=== PATIENT | female | born 1995 | race Two or more races ===

== ENCOUNTER 2021-03-16 22:50 | Emergency (ER) | payer OTHER ==
[~2021-03-16] VITALS: Ht 157.5 cm; Wt 54.2 kg
[2021-03-16] MEDS ORDERED: ONDANSETRON ODT 4 MG ONE (23:11)
[2021-03-16] MEDS ORDERED: LORazepam 1MG TABLET ONE (23:12)
--- NOTE | 2021-03-16 23:15 | NUR ---
pt came into ed today with reports of getting her second shot this am and now feeling generally poor. c/o n/v, anxiety, and fatigue. pt states she did not have a bad reaction to the first vaccine. Patient is resting comfortably in bed. Bed in lowest, rails engaged, call light on lap. Vital Signs within normal limits. WCBLESSING. abraham laird at for eval and poc. pt medicated per oct.
[2021-03-16] MEDS ORDERED: LORazepam 1MG TABLET PO ONE (23:30)
[2021-03-16] MEDS ORDERED: ONDANSETRON ODT 4 MG PO ONE (23:30)
[2021-03-16 23:51] VITALS: BP 103/59
--- NOTE | 2021-03-16 23:58 | NUR ---
Patient given discharge instructions and they have confirmed that they understand the instructions. Patient ambulatory with steady gait. NAD, all questions answered appropriately, denies additional needs at this time. No personal belongings left in room after discharge.
== END 2021-03-16 23:59 | disposition home or self-care (01) ==
LOC: ED 23:20
DX: R11.2 Nausea with vomiting, unspecified (principal); F41.1 Generalized anxiety disorder; T50.Z95A Adverse effect of other vaccines and biological substances, initial encounter; R07.89 Other chest pain
CPT/HCPCS: 99283; Q0162

== ENCOUNTER 2021-03-27 21:32 | Emergency (ER) | payer OTHER ==
[~2021-03-27] VITALS: Ht 157.5 cm; Wt 52.8 kg
[2021-03-27] MEDS ORDERED: LORazepam 1MG TABLET PO ONE (22:30)
[2021-03-27] MEDS ORDERED: LORazepam 1MG TABLET ONE (23:14)
[2021-03-27 23:58] LABS: BASOPHILS % (AUTO) 0 % (0-1); EOSINOPHILS % (AUTO) 0 % (1-7); LYMPHOCYTES % (AUTO) 28 % (22-44); MEAN CORPUSCULAR HEMOGLOBIN 31.5 pg (27.0-34.8); MEAN CORPUSCULAR HGB CONC 34.5 g/dL (32.4-35.8); MEAN PLATELET VOLUME 7.4 fL (7.4-10.4); MONOCYTES % (AUTO) 3 % (2-9); NEUTROPHILS % (AUTO) 68 % (42-75); PLATELET COUNT 337 x10^3/uL (130-400); RED BLOOD COUNT 4.57 x10^6/uL (3.82-5.3); RED CELL DISTRIBUTION WIDTH 12.2 % (9.6-15.2)
[2021-03-28 00:05] LABS: ALBUMIN 4.2 g/dL (3.4-5.0); ANION GAP 4 mmol/L (5-15); CALCIUM 9.2 mg/dL (8.5-10.1); CHLORIDE 106 mmol/L (98-107); CREATININE 0.59 mg/dL (0.55-1.02); T4 (THYROXINE) 9.3 mcg/dL (4.8-13.9)
[2021-03-28 00:15] LABS: TROPONIN I < 0.015 ng/mL (0.000-0.045)
[2021-03-28 00:46] VITALS: BP 100/55
== END 2021-03-28 00:47 | disposition home or self-care (01) ==
LOC: ED 22:02
DX: R07.2 Precordial pain (principal); F41.1 Generalized anxiety disorder
CPT/HCPCS: 36415; 71046; 80048; 82040; 84436; 84443; 84484; 84703; 85025; 85379; 93005; 99285

== ENCOUNTER 2021-03-31 18:27 | Emergency (ER) | payer OTHER ==
[~2021-03-31] VITALS: Ht 157.5 cm; Wt 55.0 kg
[2021-03-31] MEDS ORDERED: LORazepam 0.5MG TABLET PO ONE (19:00)
[2021-03-31] MEDS ORDERED: LORazepam 0.5MG TABLET ONE (19:10)
[2021-03-31 19:14] LABS: BASOPHILS % (AUTO) 1 % (0-1); EOSINOPHILS % (AUTO) 0 % (1-7); LYMPHOCYTES % (AUTO) 23 % (22-44); MEAN CORPUSCULAR HEMOGLOBIN 31.6 pg (27.0-34.8); MEAN CORPUSCULAR HGB CONC 34.9 g/dL (32.4-35.8); MEAN PLATELET VOLUME 7.6 fL (7.4-10.4); MONOCYTES % (AUTO) 5 % (2-9); NEUTROPHILS % (AUTO) 72 % (42-75); PLATELET COUNT 314 x10^3/uL (130-400); RED BLOOD COUNT 4.37 x10^6/uL (3.82-5.3); RED CELL DISTRIBUTION WIDTH 12.2 % (9.6-15.2)
--- NOTE | 2021-03-31 19:22 | NUR ---
ASSUMED CARE OF PATIENT. PATIENT C/O LEFT SIDE CHEST PAIN THAT COMES AND GOES. PT REPORTS SHE HAS HAD THE CHEST PAIN SINCE SATURDAY. PT ALSO REPORTS SHE HAS BEEN HAVING CHEST PAIN ON AND OFF SINCE THE AFTER HER LAST COVID SHOT. 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 NSR NOTED. CALL LIGHT IN PLACE. WILL CONTINUE TO MONITOR.
[2021-03-31] MEDS ORDERED: SERT-331 PO (19:24)
[2021-03-31 19:25] LABS: ALANINE AMINOTRANSFERASE 19 U/L (12-78); ALBUMIN 4.1 g/dL (3.4-5.0); ANION GAP 7 mmol/L (5-15); CALCIUM 8.8 mg/dL (8.5-10.1); CHLORIDE 106 mmol/L (98-107); CREATININE 0.52 mg/dL (0.55-1.02)
[2021-03-31 19:29] LABS: ALKALINE PHOSPHATASE 49 U/L (45-117); BILIRUBIN,TOTAL 0.6 mg/dL (0.2-1.0); TROPONIN I < 0.015 ng/mL (0.000-0.045)
--- NOTE | 2021-03-31 19:57 | NUR ---
DR SAHU IN ROOM UPDATING PATIENT
[2021-03-31] MEDS ORDERED: KETOROLAC 30 MG/1 ML IM ONE (20:00)
[2021-03-31] MEDS ORDERED: KETOROLAC 30 MG/1 ML ONE (20:05)
--- NOTE | 2021-03-31 21:00 | NUR ---
DR SAHU HAS UPDATED PATIENT
[2021-03-31 21:08] VITALS: BP 104/58
== END 2021-03-31 21:10 | disposition home or self-care (01) ==
LOC: ED 19:00
DX: R07.89 Other chest pain (principal); R94.31 Abnormal electrocardiogram [ECG] [EKG]
CPT/HCPCS: 36415; 80053; 84484; 85025; 93005; 96372; 99284; J1885